=== PATIENT | male | born 2005 | race African-American/Black ===

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

== ENCOUNTER 2023-11-22 06:52 | Emergency (ER) | payer SELFPAY ==
[2023-11-22 06:53] VITALS: PULSE 61; RESP 16; TEMP 36.8; O2SAT 100
--- NOTE | 2023-11-22 07:19 | ED.NAVMDI ---
HPI - Nausea/Vomiting/Diarrhea General Chief complaint: Nausea/Vomiting/Diarrhea Stated complaint: vomiting Time Seen by Provider: 11/22/23 07:09 Source: patient Mode of arrival: ambulatory Limitations: no limitations History of Present Illness HPI Narrative: 18 years old male came to the hospital with vomiting every day in the morning maximum wants lately noticed streaks of blood in his vomitus. Patient reported been drinking alcohol in the last few days because of the holiday. Also complaining of burning sensation in the epigastric area the last few days. He denies any fever, chills, diarrhea, headache. Related Data Allergies Allergy/AdvReac Type Severity Reaction Status Date / Time No Known Allergies Allergy Verified 11/22/23 07:21 Review of Systems Review of Systems: All systems reviewed & are unremarkable except as noted in HPI and below PMFSH Past Medical History Medical History Kidney stone on left side Wrist fracture, bilateral Surgical History Surgical History No pertinent past surgical history Social History Social History Smoking status: Never smoker Exam Narrative: General appearance: Well-developed, well-nourished Skin: Normal color Head: Normocephalic, nontraumatic Eyes: Clear conjunctiva ENT: Oropharynx normal, ears normal, nose normal Neck: Supple, nontender Chest and respiratory: Airway patent, no respiratory distress, no accessory muscle use Heart: Regular rate/rhythm Abdomen: Soft, nontender, no organomegaly, quiet bowel sounds Vascular: Normal peripheral pulses, normal capillary refill. Musculoskeletal: Normal range of motion, nontender back Neurologic: Alert and oriented ?3, SPEECH LANGUAGE THERAPIST is normal as tested, no gross motor deficit Course Vital Signs Vital signs: Vital Signs Temperature 36.8 C 11/22/23 06:53 Pulse Rate 61 11/22/23 06:53 Respiratory Rate 16 11/22/23 06:53 Pulse Oximetry 100 11/22/23 06:53 Oxygen Delivery Room Air 11/22/23 06:53 Temperature 36.8 C 11/22/23 06:53 Pulse Rate 95 11/22/23 07:26 Respiratory Rate 16 11/22/23 06:53 Blood Pressure 127/80 11/22/23 07:26 Pulse Oximetry 100 11/22/23 06:53 Oxygen Delivery Room Air 11/22/23 06:53 MDM - Nausea/Vomiting/Diarrhea MDM Narrative Medical decision making narrative: Patient presents with epigastric burning sensation and vomiting, GERD, alcohol gastritis is my concern. Blood workup today showed no significant abnormalities Patient received 2 L of normal saline IV and 4 mg of Zofran IV prior to discharge. Discharge on Protonix. Differential Diagnosis Differential diagnosis: Likely other ( As above) Medical Records Attestation: I reviewed the patient's medical records. Lab Data Attestation: I reviewed the patient's lab results. 11/22/23 07:20 11/22/23 07:20 Labs: Lab Results 11/22/23 11/22/23 Range/Units 07:20 07:51 WBC 14.1 H (4.5-10.0) K/mm3 RBC 5.16 (4.6-6.20) M/mm3 Hgb 16.4 (14.0-18.0) g/dL Hct 49.2 (42.0-52.0) % MCV 95.3 (80-100) fl MCH 31.8 (26-34) pg MCHC 33.3 (32-36) g/dl RDW 11.9 (11.5-14.5) % Plt Count 271 (150-375) k/mm3 MPV 9.5 (7.4-10.4) fl Immature Gran % (Auto) 0.4 (0-0.5) % Neut % (Auto) 82.9 H (45.5-73.1) % Lymph % (Auto) 12.7 L (18.3-44.2) % [place] % (Auto) 3.7 (2.6-8.5) % Eos % (Auto) 0.1 (0-4.4) % Baso % (Auto) 0.2 (0.2-1.2) % Lymph # (Auto) 1.78 (0.9-3.2) K/mm3 [place] # (Auto) 0.5 (0.1-0.6)
[2023-11-22 07:23] VITALS: BP 127/76; PULSE 71
[2023-11-22 07:24] VITALS: BP 131/91; PULSE 63
[2023-11-22 07:25] LABS: Basophils Percent Auto 0.2 % (0.2-1.2); Eosinophils Percent Auto 0.1 % (0-4.4); Hematocrit 49.2 % (42.0-52.0); Hemoglobin 16.4 g/dL (14.0-18.0); Immature Granulocyte Absolute 0.05 K/mm3 (0.00-0.031); Immature Granulocyte Percent A 0.4 % (0-0.5); Lymphocytes Absolute Auto 1.78 K/mm3 (0.9-3.2); Lymphocytes Percent Auto 12.7 % (18.3-44.2); Mean Corpuscular HGB Conc 33.3 g/dl (32-36); Mean Corpuscular Hemoglobin 31.8 pg (26-34); Mean Corpuscular Volume 95.3 fl (80-100); Mean Platelet Volume 9.5 fl (7.4-10.4); Monocytes Absolute Auto 0.5 K/mm3 (0.1-0.6); Monocytes Percent Auto 3.7 % (2.6-8.5); Neutrophils Absolute Auto 11.7 K/mm3 (1.3-6.7); Neutrophils Percent Auto 82.9 % (45.5-73.1); Platelet Count Result 271 k/mm3 (150-375); Red Blood Count 5.16 M/mm3 (4.6-6.20); Red Cell Distribution Width 11.9 % (11.5-14.5); White Blood Count 14.1 K/mm3 (4.5-10.0)
[2023-11-22 07:26] VITALS: BP 127/80; PULSE 95
[2023-11-22] MEDS: ONDANSETRON INJ 4 MG/2 ML VIAL IV PUSH (07:28)
[2023-11-22] MEDS: SODIUM CHLORIDE 0.9% IV 1,000 ML 999 ML IV CONT ×2 (07:29)
[2023-11-22 07:35] LABS: Alanine Aminotransferase 30 U/L (6-50); Albumin Level 5.1 g/dL (3.5-5.1); Alkaline Phosphatase 67 U/L (38-126); Anion Gap 12 mmol/L (8-16); Aspartate Amino Transferase 39 U/L (17-59); Bilirubin,Total 0.7 mg/dL (0.2-1.3); Blood Urea Nitrogen 12 mg/dL (9-20); Calcium 10.3 mg/dL (8.4-10.2); Carbon Dioxide 28 mmol/L (22-30); Chloride 104 mmol/L (98-107); Estimated CRCL calculation 128 ml/min; Estimated Glomerular Filt Rate > 60; Glucose 86 mg/dL (65-110); Lipase 64 U/L (23-300); Potassium 3.9 mmol/L (3.4-5.0); Sodium 144 mmol/L (137-145)
[2023-11-22 08:06] LABS: Appearance Urine Clear (Clear); Bacteria Urine None Seen /hpf; Bilirubin Urine Negative (Negative); Blood Urine Negative (Negative); Color Urine Yellow (Yellow); Glucose Urine UA Negative (Negative); Ketones Urine 2+ mg/dL (Negative); Leukocyte Esterase Ur Negative LEU/UL (Negative); Nitrate Urine Negative (Negative); Non Pathogenic Casts 0-2; Protein Urine Trace mg/dL (Negative); Specific Grav Ur 1.024 (1.001-1.035); Squamous Epithelial Cell Urine None seen /hpf (Few); WBC Urine 0-5 /hpf; pH Urine 8.5 (5.0-9.0)
[2023-11-22 08:18] LABS: Amphetamine Screen Urine Negative (Negative); Barbiturate Screen Urine Negative (Negative); Benzodiazepines Screen Urine Negative (Negative); Cannabinoid Screen Urine Positive (Negative); Cocaine Screen Urine Negative (Negative); Methadone Screen Urine Negative (Negative); Opiate Screen Urine Negative (Negative); Phencyclidine Screen Urine Negative (Negative)
[2023-11-22 08:21] LABS: Add Urine Microscopic? YES
[2023-11-22 08:55] VITALS: BP 120/80; PULSE 75; RESP 18; TEMP 36.6; O2SAT 100
== END 2023-11-22 08:56 | disposition home or self-care (01) ==
PROVIDERS: Emergency Provider Emergency Medicine
DX: K21.9 Gastro-esophageal reflux disease without esophagitis (principal); F12.99 Cannabis use, unspecified with unspecified cannabis-induced disorder
CPT/HCPCS: 36415; 80053; 80307; 81001; 83690; 85025; 96361; 96374; 99284; J2405; J7030

== ENCOUNTER 2023-12-23 19:13 | Emergency (ER) | payer OTHER, SELFPAY ==
--- NOTE | ~2023-12-23 | XR_ITS ---
EXAMINATION: XR chest 2V DATE: 12/23/2023 19:43 INDICATION: Midsternal chest pain. TECHNIQUE: Frontal and lateral views of the chest were obtained. COMPARISON: CT abdomen and pelvis 02/25/22 FINDINGS: There is no pneumonia, pleural effusion, or pneumothorax. The heart size is normal. IMPRESSION: 1. No acute cardiopulmonary disease. Reviewed, dictated and finalized at location E. TREER
--- NOTE | ~2023-12-23 | CT_ITS ---
EXAMINATION: CT abdomen pelvis wo con DATE: 12/23/2023 23:38 INDICATION: Epigastric abdominal pain. TECHNIQUE: Computed tomography (CT) of the abdomen and pelvis was performed without intravenous contr ast. Automated exposure control and iterative reconstruction technique were employed. The dose-length product was 335.50 mGy-cm. COMPARISON: CT abdomen and pelvis 02/25/2022 FINDINGS: The visualized portions of the lung bases demonstrate pneumomediastinum. No pleural effusio n. The heart size is normal. No pericardial effusion. The liver, gallbladder, spleen, pancreas, and a drenal glands are normal. There is bilateral medullary nephrocalcinosis. There are 6 stones in right kidney measuring up to 3 mm. There are 5 stones in left kidney measuring up to 4 mm. There are no dil ated loops of bowel. The appendix is normal. There are no pathologically enlarged lymph nodes. There is no free intraperitoneal fluid. There is mild lumbar spondylosis. IMPRESSION: 1. Small volume of pneumomediastinum. 2. Bilateral medullary nephrocalcinosis. Small bilateral nonobstructing kidney stones. Reviewed, dictated and finalized at location E. OPERATOR
--- NOTE | 2023-12-23 19:14 | ECG_ITS ---
Measurements Intervals [place] Rate: 86 P: 80 [place]: 165 QRS: 87 QRSD: 93 T: 27 QT: 354 QTc: 426 Interpretive Statements SINUS RHYTHM MINIMAL Q WAVES- INFERIOR LEADS BORDERLINE ST-T WAVE ABNORMALITY- INFERIOR LEADS BORDERLINE ECG COMPARED TO ECG 07/24/2021 00:54:12 ST ELEVATION RESOLVED Electronically Signed On 12-23-2023 21:15:54 DATE NIGHT CAREGIVER by Nicola Rodriguez D.O.
[2023-12-23 19:33] VITALS: BP 132/92; PULSE 90; RESP 15; TEMP 36.8; O2SAT 97
[2023-12-23 20:02] LABS: Basophils Percent Auto 0.2 % (0.2-1.2); Eosinophils Percent Auto 0.1 % (0-4.4); Hematocrit 49.5 % (42.0-52.0); Hemoglobin 16.9 g/dL (14.0-18.0); Immature Granulocyte Absolute 0.03 K/mm3 (0.00-0.031); Immature Granulocyte Percent A 0.2 % (0-0.5); Lymphocytes Absolute Auto 1.36 K/mm3 (0.9-3.2); Lymphocytes Percent Auto 10.1 % (18.3-44.2); Mean Corpuscular HGB Conc 34.1 g/dl (32-36); Mean Corpuscular Hemoglobin 32.1 pg (26-34); Mean Corpuscular Volume 94.1 fl (80-100); Monocytes Absolute Auto 0.9 K/mm3 (0.1-0.6); Monocytes Percent Auto 6.4 % (2.6-8.5); Neutrophils Absolute Auto 11.2 K/mm3 (1.3-6.7); Platelet Count Result 283 k/mm3 (150-375); Red Blood Count 5.26 M/mm3 (4.6-6.20); Red Cell Distribution Width 11.6 % (11.5-14.5); White Blood Count 13.5 K/mm3 (4.5-10.0)
[2023-12-23 20:06] LABS: Prothrombin Time 13.9 Seconds (11.1-14.7)
[2023-12-23 20:07] LABS: Partial Thromboplastin Time 33.3 SECONDS (22.3-36.8)
[2023-12-23 21:44] LABS: Alanine Aminotransferase 26 U/L (6-50); Albumin Level 5.2 g/dL (3.5-5.1); Alkaline Phosphatase 68 U/L (38-126); Anion Gap 11 mmol/L (8-16); Aspartate Amino Transferase 40 U/L (17-59); Blood Urea Nitrogen 13 mg/dL (9-20); Calcium 10.2 mg/dL (8.4-10.2); Carbon Dioxide 25 mmol/L (22-30); Chloride 104 mmol/L (98-107); Estimated CRCL calculation 128 ml/min; Estimated Glomerular Filt Rate > 60; Glucose 99 mg/dL (65-110); Lipase 45 U/L (23-300); Potassium 4.3 mmol/L (3.4-5.0); Sodium 140 mmol/L (137-145)
[2023-12-23 21:55] LABS: Troponin I < 0.012 ng/mL (0.000-0.034)
[2023-12-23 23:08] VITALS: PULSE 81
[2023-12-23 23:09] VITALS: O2SAT 100
--- NOTE | 2023-12-23 23:09 | ECG_ITS ---
Measurements Intervals [place] Rate: 66 P: 62 PA: 176 QRS: 66 QRSD: 100 T: 30 QT: 396 QTc: 417 Interpretive Statements SINUS RHYTHM WITH SINUS ARRHYTHMIA NONSPECIFIC ST ELEVATION IN ANTERIOR LEADS BORDERLINE ECG COMPARED TO ECG 12/23/2023 19:17:52 SINUS ARRHYTHMIA NOW PRESENT Electronically Signed On 12-24-2023 6:38:34 RICE FARMER by Nicola Rodriguez D.O.
[2023-12-23 23:10] VITALS: BP 142/92; PULSE 82; RESP 19; TEMP 36.6; O2SAT 100
[2023-12-23 23:24] LABS: Troponin I < 0.012 ng/mL (0.000-0.034)
--- NOTE | 2023-12-23 23:28 | ED.GENADULT ---
[facility] - General Adult General Chief complaint: Chest Pain Stated complaint: midsternal pain, Time Seen by Provider: 12/23/23 23:06 Source: patient Mode of arrival: ambulatory Limitations: no limitations History of Present Illness HPI narrative: This is a 18-year-old male who presents to the ED with chief complaint of midsternal chest pain intermittently for the past week. Reports that today started to have some nausea and multiple episodes of emesis. He also reports also ill episodes of watery diarrhea. He had coags who reports some pain throughout the mid chest and upper mid abdomen area. He has been taking some anti acid medications at home with some relief. He also took Dramamine today with relief of nausea. Denies fevers, chills, urinary problems, cough, congestion, leg swelling, palpitations. Related Data Allergies Allergy/AdvReac Type Severity Reaction Status Date / Time No Known Allergies Allergy Verified 11/22/23 07:21 Review of Systems Review of Systems: All systems as dictated in [facility] Past Medical History Medical History Kidney stone on left side Wrist fracture, bilateral Surgical History Surgical History No pertinent past surgical history Social History Social History Smoking status: Never smoker Exam Narrative: GENERAL: Well-appearing, well-nourished, and in no acute distress. HEAD: Normocephalic, atraumatic. EYES: PERRLA and EOMI. ENT: Nares clear, no rhinorrhea or epistaxis. Mucous membranes moist. Oropharynx without tonsillar hypertrophy exudate or other lesions. NECK: Supple. No adenopathy or masses. CHEST: No respiratory distress. Clear to auscultation. No wheezes rales or rhonchi HEART: Regular rate and rhythm. No murmur heard. Normal peripheral pulses. ABDOMEN: Soft, nontender, nondistended, normal active bowel sounds. MSK: Normal range of motion. No edema. SKIN: Warm, dry, no rash. NEURO: Alert and oriented x3. No focal deficits. PSYCH: Normal mood and affect. Course Vital Signs Vital signs: Vital Signs Temperature 98.3 F 12/23/23 19:33 Pulse Rate 90 01/26/24 19:33 Respiratory Rate 15 12/23/23 19:33 Blood Pressure 132/92 H 12/23/23 19:33 Pulse Oximetry 97 12/23/23 19:33 Oxygen Delivery Room Air 12/23/23 19:33 Temperature 97.8 F 12/23/23 23:10 Pulse Rate 62 12/24/23 01:39 Respiratory Rate 15 12/24/23 01:39 Blood Pressure 128/98 H 12/24/23 01:39 Pulse Oximetry 98 12/24/23 01:39 Oxygen Delivery Room Air 12/23/23 23:09 Medical Decision Making MDM Narrative Medical decision making narrative: this is a 18-year-old male who presents to the ED with chief complaint of 1 week of chest pain and nausea and vomiting today. Vitals are normal. No episodes of vomiting while being observed here. Exam does show epigastric tenderness. ECG shows sinus rhythm with sinus arrhythmia. Serial troponins are normal. White count slightly elevated at 13.5. likely acute phase reactant with the vomiting. Lipase normal. PERC rule negative. Chest x-ray shows no acute cardiopulmonary disease. CT scan:1. Small volume of pneumomediastinum. 2. Bilateral medullary nephrocalcinosis. Small bilateral nonobstructing kidney stones.. He has improved with fluids, antiemetics and antacid medications.. vitals continue to be stable. He is resting comfortably exam. With this finding of pneumomediastinum after vomiting it would be pertinent to have an esophagram performed. Spoke with the hospitalist to recommends transfer to a higher level of care that has CT surgery on board in case things should worsen. I explained all has to the patient and that he would likely need to be transferred for with further imaging and likely observation. He is understanding of this plan and is agreeab
[2023-12-23] MEDS: BELLADONNA ALK/PHENOB ELIX 10 ML, MAG HYDROX/ALUMINUM HYD/SIMETH 30 ML, LIDOCAINE HCL 2... PO (23:50)
[2023-12-23] MEDS: ONDANSETRON INJ 4 MG/2 ML VIAL IV PUSH (23:51)
[2023-12-23] MEDS: KETOROLAC 15 MG/ML VIAL (*BKC) IV PUSH (23:52)
[2023-12-24 00:23] VITALS: BP 121/7; PULSE 55; RESP 15; O2SAT 98
--- NOTE | 2023-12-24 01:05 | ECG_ITS ---
Measurements Intervals [place] Rate: 53 P: 62 NC: 167 QRS: 74 QRSD: 102 T: 32 QT: 439 QTc: 413 Interpretive Statements SINUS BRADYCARDIA ATRIAL PREMATURE COMPLEXES BORDERLINE ECG COMPARED TO ECG 12/23/2023 23:13:30 SINUS BRADYCARDIA NOW PRESENT Electronically Signed On 12-24-2023 6:46:31 SHUTDOWN COORDINATOR by Nicola Rodriguez D.O.
[2023-12-24] MEDS: PANTOPRAZOLE SODIUM IV 40 MG VIAL IV PUSH (01:15)
[2023-12-24 01:39] VITALS: BP 128/98; PULSE 62; RESP 15; O2SAT 98
[2023-12-24 01:43] LABS: Troponin I < 0.012 ng/mL (0.000-0.034)
== END 2023-12-24 02:19 | disposition short-term general hospital (02) ==
PROVIDERS: Emergency Medicine; Emergency Provider Physician Assistant
DX: R07.2 Precordial pain (principal); J98.2 Interstitial emphysema; Z87.442 Personal history of urinary calculi; R94.31 Abnormal electrocardiogram [ECG] [EKG]; E83.59 Other disorders of calcium metabolism; N29 Other disorders of kidney and ureter in diseases classified elsewhere; I49.1 Atrial premature depolarization
CPT/HCPCS: 36415; 71046; 74176; 80053; 83690; 84484; 85025; 85610; 85730; 93005; 96374; 96375; 99285; A9270; C9113; J1885; J2405

== ENCOUNTER 2025-07-26 20:49 | Emergency (ER) | payer OTHER, SELFPAY ==
--- OUTSIDE RECORDS SUMMARY | 2021-04-28 08:00 | XMS_ITS | Continuity of Care Document ---
Author Organization [facility] Address [address] [place] [address] Phone Care Team Providers Care Division Engineer Name Role Phone Ethel Harper MD Unavailable Unavailable Allergies, Adverse Reactions, Alerts Substance Reaction Status Criticality No Known Allergies Active No Inform ation Procedures Procedure Date RADEX WRST COMPL MINIMUM 3 VIEWS 2020 RADEX WRST COMPL MINIMUM 3 VIEWS 2020 POSTOP FOLLOW-UP VISIT RADEX WRST COMPL MINIMUM 3 VIEWS 2020 OFFICE/OUTPATIENT VISIT NEW OFFICE/OUTPATIENT VISIT NEW Advance Directives Directive Yes / No Effective Date File Name No Information Encounters Encounter Description Practice Location Reason(s) For Visit Diagnoses Date Provider Providers Copied on Encounter [facility], [address], [place], [address], [place] tel:[phone] [facility] [place] Other fractures of lower end of right radius, subsequent encounter for closed fracture with routine healingClosed displaced fracture of scaphoid of left wrist with routine healing, unspecified portion of scaphoid, subsequent encounter Meredith Davenport. [address], [place], [place], [id number] . tel: [phone] OFFICE/OUTPA TIENT VISIT NEW [facility], [address], [place], [address], [place] tel:[phone] [facility] [place] Left wrist painClosed nondisplaced fracture of scaphoid of left wrist, unspecified portion of scaphoid, initial encounterOther closed fracture of distal end of right radius, initial encounter 1 Meredith Davenport. [address], [place], [place], [id number] . tel: [phone] Referring Provider: Hossein Slade, [address], [place], [address] . tel:[phone] OFFICE/OUTPA TIENT VISIT [facility], [address] [place] [address] [address], [place], [address], [place] tel:[phone] [facility] Contusion of rib on right side, initial encounter 9 Demarco Mendes. [address] [place] [address] [address], [place], [address]. tel: [phone] [facility], [address] [place] [address] [address], [place], [address], [place] tel:[phone] [facility] Torus fracture of distal end of right ulna with routine healing, subsequent encounterGreens tick fracture of distal radius, right, closed, with routine healing, subsequent encounter 5 Vanessa Higginbotham. [address] [facility], [address], [place], [place], [id number] . tel: [phone] [facility], [address] [place] [address] [address], [place], [address], [place] tel:[phone] [facility] Follow Up of R wrist (chief complaint) Closed fracture of lower end of radius with ulna, right, with routine healing, subsequent encounter ^Unsp fx lower end of r ulna, subs for clos fx w routn healAcromioclav icular sprain, right, subsequent encounter 5 Vanessa Higginbotham. [address] [facility], [address], [place], [place], [address] . tel: [phone] [facility], [address] [place] [address] [address], [place], [address], [place] tel:[phone] [facility] Distal radius fracture 5- 5 Mendez Anahy. [address] [facility] [address], [address], [place], [place], [address] . tel: [phone] [facility], [address], [place], [address], tel:[phone] [facility] Closed fracture of lower end of radius with ulna 0-201 4 Mendez Anahy. [address] [facility] [address], [address], [place], [place], [address] . tel: [phone] [facility], [address], [place], [address], [place] [phone] [facility] Closed fracture of lower end of radius with ulna 7- 4 Mendez Anahy. [address] [facility] [address], [address], [place], [place], [address] . tel: [phone] [facility], [address], [place], [address], [place] [phone] [facility] Closed fracture of lower end of radius with ulna 3- 4 Barajas Kathy. [address] [facility] [address], [place], [place], [id number] . tel: [phone] Family History Family Member Type Diagnosis Age At Onset Mother Problem (finding) Alive and well Payers Payer name Insurance type Covered libertarian ID Brayan red(s) Blue Access PPO E2 OT [id number] Social History Type Description Quantity Date Captured Comments Alcohol Use Details Unknown Caffeine Use Details Unknown Tobacco Use Status Current non-smoker Smoking Status Never smoker Sex Male Chief Complaint And Reason For Visit No Information Reason For Referral Reason For Referral No Information Plan Of Treatment Date Type Action Status Referral Ordered: RADEX WRST COMPL MINIMUM 3 VIEWS RT ordered Referral Ordered: RADEX WRST COMPL MINIMUM 3 VIEWS LT ordered Referral Ordered: MRI ANY JT UXTR C-MATRL LT wrist Appointment date/timeframe: 04/02/2021 ordered Referral Ordered: RADEX RIBS UNI 2 VIEWS RT ordered Referral Ordered: RADEX WRST 2 VIEWS RT ordered Referral Ordered: RADEX WRST 2 VIEWS LT ordered History Of Present Illness Encounter Date Complaint History Of Prese nt Illness Follow Up of R wrist Functional Status Date Functional Assessmen t No Information Instructions Date Instruction Additional Infor mation No Information Assessments Type Assessment Date assessment Other fractures of l ower end of right radius, subsequent encounter for closed fracture with routine healing assessment Closed displaced fra cture of scaphoid of left wrist with routine healing, unspecified portion of scaphoid, subsequent encounter Patient Care Teams Name Effective Dates (start - stop) Status Members No Information
--- NOTE | ~2025-07-26 | XR_ITS ---
EXAMINATION: XR chest 2V DATE: 07/26/2025 21:13 INDICATION: Chest pain TECHNIQUE: PA and lateral views of the chest were obtained. COMPARISON: Chest radiograph dated 12/23/2023 FINDINGS: The lungs remain clear with no focal airspace opacities, pulmonary edema, pleural effusion or pneumothorax. The cardiomediastinal silhouette is normal. Visualized bones and soft tissues are unremarkable. IMPRESSION: 1. Normal chest radiograph. Reviewed, dictated and finalized at location A. IMPRESSION: 1. Normal chest radiograph.
--- OUTSIDE RECORDS SUMMARY | 2025-07-26 20:52 | XMS_ITS | Clinical Summary ---
Author Organization [facility] Address [address] [place] [address] Care Team Providers Care Credit Operations Processor Name Role Phone Unavailable Primary Care Provider Unavailabl e Source Comments [facility],non-owned Affiliates and Associated Physician Practices is amultiple site organization consisting of ambulatory clinics and hospital sitesin [place], [place] and [place]. This disclosure is being madepursuant to the Care Everywhere program and may not contain all information available regarding this patient. Last updated 18.[facility] Allergies No known active allergies Medications * Be aware that medications may not be up to date on this document. Alwaysverify current medications with the patient. Cetirizine HCl (ZYRTEC PO) Active ibuprofen (MOTRIN) 600 MG tablet Take 1 tablet by mouth every 6 hours as needed for Pain 30 tablet 8 Active Additional Information Patient not taking.Reported on 09/08/2019 tamsulosin (FLOMAX) 0.4 MG capsule Take 1 (one) capsule by mouth once daily after breakfast At the same time every day after a meal. 30 capsule 2 Active ketorolac (TORADOL) 10 MG tablet Take 1 (one) tablet by mouth every 6 hours as needed for Pain 15 tablet 2 Active Social History Tobacco Use Types Packs/Day Years Used Date Smoking Tobacco: Never Smokeless Tobacco: Never Tobacco Cessation:Counseling Given: Not Answered Alcohol Use Standard Drinks/Week Comments Not Currently 0 (1 standard drink = 0.6 oz pur e alcohol) occasionally AUDIT-C Answer Date Recorded Q1: How often do you have a drink containing alc ohol? Monthly or less 12/24/2023 Q2: How many drinks containi ng alcohol do you have on a typical day when you are drinking? 1 or 2 12/24/2023 Q3: How often do you have si x or more drinks on one occasion? Never 12/24/2023 PHQ-2 Answer Date Recorded PHQ2 TOTAL SCORE 1 12/02/2021 Sex and Gender Information Value Date Recorded Sex Assigned at Male 12/02/2021 2:44 PM BIG DATA DEVELOPER Legal Sex Male 11:33 AM CDT Gender Identity Male 12/02/2021 2:44 PM BIG DATA DEVELOPER Sexual Orientation Straight 12/02/2021 2: 44 PM BIG DATA DEVELOPER Last Filed Vital Signs Vital Sign Reading Time Taken Comments Blood Pressure 134/87 01/17/2024 10:00 PM BIG DATA DEVELOPER Pulse 84 01/17/2024 10:00 PM BIG DATA DEVELOPER Temperature 37.1 C (98.8 F) 01/17/2024 10:00 PM BIG DATA DEVELOPER Respiratory Rate 18 01/17/2024 10:00 PM BIG DATA DEVELOPER Oxygen Saturation 99% 01/17/2024 10:00 PM BIG DATA DEVELOPER Inhaled Oxygen Concentration - - Weight 74.4 kg (164 lb) 01/17/2024 5:49 PM BIG DATA DEVELOPER Height 175.3 cm (5' 9) 01/17/2024 5:49 PM BIG DATA DEVELOPER Body Mass Index 24.22 01/17/2024 5:49 PM BIG DATA DEVELOPER Plan of Treatment Health Maintenance Due Date Last Done Comments HIV SCREENING 2018 HPV VACCINE (1 - Male 3-dose series) 2018 MENINGOCOCCAL (Group B) VACCINE SHARED DECISION-MAKING (1 of 2 - Standard) 2019 HEPATITIS C SCREENING 05/01/2021 DTAP/TDAP/TD VACCINES (1 - Tdap) 2022 HEPATITIS B VACCINE (1 of 3 - 19+ 3-dose series) 2022 COVID-19 VACCINE (3 - 2023-2 5 season) 2024 04/11/2021, 03/21/2021 DEPRESSION SCREENING 11/28/2024 04/19/2022 INFLUENZA VACCINE (#1) 2025 ZOSTER VACCINE (1 of 2) 2053 HIB VACCINE Aged Out No longer eligi ble based on patient's age to complete this topic MENINGOCOCCAL GROUPS A/C/Y/W VACCINE Aged Out No longer eligible b ased on patient's age to complete this topic PNEUMOCOCCAL VACCINE Aged Out No long er eligible based on patient's age to complete this topic Insurance [facility] [facility] Address: [facility] [id number] [place] [address]
--- OUTSIDE RECORDS SUMMARY | 2025-07-26 20:52 | XMS_ITS | Encounter Summary ---
Author Organization [employer] Address [address] [place] [address] Care Team Providers Care Automotive Designer Name Role Phone Quinn Tarango MD Primary Care Provider Yu vailable Encounter Details Date Type Department Care Team (Latest Contact Info) Description 11/11/2005 Outpatient Historical [facility] Kannan Mon MD [address] [facility] [address] [place] [id number] LOCAL SUPRFICIAL SWELLNG (Primary Dx) Social History Tobacco Use Types Packs/Day Years Used Date Smoking Tobacco: Never Assessed Sex and Gender Information Value Date Recorded Sex Assigned at Not on file Legal Sex Male 3:21 AM ORDER MAKE UP CLERK Gender Identity Not on file Sexual Orientation Not on file documented as of this encounter Plan of Treatment Not on file documented as of this encounter Visit Diagnoses Diagnosis Localized superficial swelling, mass, or lump- Primary documented in this encounter Care Teams Automotive Designer Relationship Specialty Start Date End Date Quinn Tarango MD NO ADDRESS ON FILE PCP - General 06/15/04 documented as of this encounter
--- OUTSIDE RECORDS SUMMARY | 2025-07-26 20:52 | XMS_ITS | Clinical Summary ---
Author Organization [facility] Address [address] [place] [address] Phone Care Team Providers Care Air Twister Winder Name Role Phone Quinn Tarango MD Primary Care Provider Yu vailable Medications No known medications Active Problems No known active problems Family History Medical History Relation Name Comments Healthy Father Healthy Mother Relation Name Status Comments Father Alive Mother Alive Social History Tobacco Use Types Packs/Day Years Used Date Smoking Tobacco: Never Sex and Gender Information Value Date Recorded Sex Assigned at Not on file Legal Sex Male 3:21 AM SUPPORT REPRESENTATIVE Gender Identity Not on file Sexual Orientation Not on file Last Filed Vital Signs Vital Sign Reading Time Taken Comments Blood Pressure 118/84 04/01/2021 6:32 PM CDT Pulse 80 04/01/2021 6:32 PM CDT Temperature 37.6 C (99.6 F) 04/01/2021 6:32 PM CDT Respiratory Rate 18 04/01/2021 6:32 PM CDT Oxygen Saturation 98% 04/01/2021 6:32 PM CDT Inhaled Oxygen Concentration - - Weight 69.4 kg (153 lb) 04/01/2021 6:32 PM CDT Height 175.3 cm (5' 9) 04/01/2021 6:32 PM CDT Body Mass Index 22.59 04/01/2021 6:32 PM CDT Plan of Treatment Health Maintenance Due Date Last Done Comments HPV VACCINES (1 - Male 3-dose series) 2018 DTAP/TDAP/TD VACCINES (1 - Tdap) 2022 HEPATITIS B VACCINES (1 of 3 - 19+ 3-dose series) 07/2022 COVID-19 Vaccine (2 2023- season) 2024 INFLUENZA VACCINE (#1) 2025 Insurance [employer] BLUE ACCESS/TRUE BLUE PPO [employer] ACCESS/TRUE BLUE [place] [address] [id number] [place] OF [place] [address] [id number] Care Teams Air Twister Winder Relationship Specialty Start Date End Date Quinn Tarango MD NO ADDRESS ON FILE PCP - General 06/15/04
--- OUTSIDE RECORDS SUMMARY | 2025-07-26 20:52 | XMS_ITS | Encounter Summary ---
Author Organization [facility] Address [address] [place] [address] Care Team Providers Care International Sales Representative Name Role Phone Quinn Tarango MD Primary Care Provider Yu vailable Encounter Details Date Type Department Care Team (Late st Contact Info) Description 11/24/2005 Outpatient Historical [facility] Childrens Surgery [address] [place] [address] Kannan Mon Social History Tobacco Use Types Packs/Day Years Used Date Smoking Tobacco: Never Assessed Sex and Gender Information Value Date Recorded Sex Assigned at Not on file Legal Sex Male 3:21 AM TIER OVER Gender Identity Not on file Sexual Orientation Not on file documented as of this encounter Plan of Treatment Not on file documented as of this encounter Visit Diagnoses Not on filedocumented in this encounter Care Teams International Sales Representative Relationship Specialty Start Date End Date Quinn Tarango MD NO ADDRESS ON FILE PCP - General 06/15/04 documented as of this encounter
--- OUTSIDE RECORDS SUMMARY | 2025-07-26 20:52 | XMS_ITS | Clinical Summary ---
Author Organization [facility] Address [address] [place] [address] Care Team Providers Care Fermenting Cellars Receiver Name Role Phone Fawad Montejo MD Unavailable [phone] Chay Ball MD Primary Care Provider Allergies No known active allergies Medications cholecalciferol (VITAMIN D-3) 5,000 unit tabletIndication s:Vitamin D Deficiency Take 1 tablet (5,000 Units total) by mouth daily 90 tablet 3 5 Active Additional Information Patient not taking.Reported on 04/09/2025 omeprazole (PriLOSEC) 40 mg capsuleIndicatio ns:Gastroesophag eal reflux disease, unspecified whether esophagitis present Take 1 capsule (40 mg total) by mouth daily 90 capsule 5 04/09/20 26 Active sucralfate (CARAFATE) suspension 1 gram/10 mLIndications:Ga stroesophageal reflux disease, unspecified whether esophagitis present Take 5 mL (0.5 g total) by mouth every 6 (six) hours as needed (Gerd) 414 mL 5 Active Active Problems Problem Noted Date Diagnosed Date Vitamin D deficiency 12/28/2024 Assessment & Plan (12/28/2024 8:48 PM AUTO PARTS PROFESSIONAL): - new diagnosis - noted with level 14 on 11/2024 - start Vitamin D3 5000 International units daily, script sent Lab Results Component Value Date 25HYDROVITD 14 (L) 12/27/2024 Pure hypercholesterolemia 12/28/2024 Assessment & Plan (12/28/2024 8:50 PM AUTO PARTS PROFESSIONAL): - new diagnosis - noted on lab work - encourage lifestyle modification, will continue to monitor Lab Results Component Value Date CHOL 204 (H) 12/27/2024 Lab Results Component Value Date HDL 54 12/27/2024 Lab Results Component Value Date LDLCALC 134 (H) 12/27/2024 Lab Results Component Value Date TRIG 91 12/27/2024 Preventative health care 12/27/2024 Assessment & Plan (12/28/2024 8:50 PM AUTO PARTS PROFESSIONAL): - New or chronic worsening conditions: Vitamin D deficiency, pure hypercholesterolemia - Mental health: no significant psychiatric/mental health conditions affecting her day to day functioning - Dental health: past due, Recommend regular dental care and cleaning. Discussed importance of regular tooth brushing, flossing, and dental visits. - Nutrition: Recommend moderation in sodium/caffeine intake, saturated fat and cholesterol, caloric balance, sufficient intake of fresh fruits, vegetables - Exercise: Recommend to exercise at least 30 minutes moderate to vigorous exercise most days of the week. (minimum 150 minutes weekly) - Immunizations: Age and sex appropriate immunizations reviewed and offered - Vision - wears contacts - no concern for STD, safe sex practices recommended No results found for: PSA Gastroesophageal reflux disease 12/27/2024 Assessment & Plan (04/09/2025 3:14 PM CDT): Gastroesophageal reflux disease (GERD) Chronic GERD with worsening symptoms over the past two weeks, including severe heartburn, chest discomfort, nausea, vomiting, diarrhea, and hematochezia. Symptoms are exacerbated by certain foods and drinks and improve when lying down. Previous use of Tums and Germamate provided limited relief. No prior prescription medications for GERD. Recent blood work showed low vitamin D but otherwise normal results. - Prescribe omeprazole daily, preferably in the evening before dinner, for at least 30 days. - Provide a 90-day prescription for omeprazole to ensure availability if symptoms persist. - Consider short-term use of a powder solution to coat the stomach lining if symptoms are severe, but emphasize the inconvenience of this option. - Advise against using other liquid medications like Germamate once omeprazole is started. - Schedule follow-up in six weeks to assess symptom improvement and medication efficacy. Assessment & Plan (12/27/2024 3:24 PM AUTO PARTS PROFESSIONAL): - managed via lifestyle - encouraged healthy diet and exercise - Discussed increased risk of cdif and vit B12 deficiency with fdc use of PPI. Recommend the following changes: - Avoid trigger foods (such as spicy foods, fried foods, onions, peppermints, chocolate, high acid foods and juices, caffeinated beverages, carbonated beverages, and tomato based products). - Avoid alcohol take. - Avoid routine use of NSAIDs. - Avoid lying down for 2-3 hours after eating. - Weight loss encouraged. - Eat smaller meals. - Avoid tobacco use. - Sleep on left side. - may sleep with bed propped. - Avoid wearing tight clothing that puts pressure on the stomach. History of right inguinal hernia repair 02/14/20 Overview (02/13/2021): Added automatically from request for surgery [id number] Immunizations Immunization Administration Dates Next Due Hep B, Adolescent or Pediatric 02/08/2004,2002 Hib (PRP-T) 01/11/2004,2003 IPV 04/17/2004 Influenza, Unspecified 04/09/2025(Deferr ed: Patient Refused),12/27/2024(Deferred: Patient Refused),11/28/2023(Deferred: Patient Refused),11/28/2023(Deferred: Patient Refused) Pfizer SARS-CoV-2 Monovalent Vaccination (12+ Yrs) PURPLE 04/11/2021,03/21/2021 Varicella 01/05/2005 Surgical History Surgery Date Site/Laterality Comments KNEE MASS EXCISION Right LAPAROSCOPIC INGUINAL HERNIA REPAIR Right Medical History Medical History Date Comments Right inguinal hernia Family History Medical History Relation Name Comments No Known Problems Brother No Known Problems Father No Known Problems Mother No Known Problems Sister Relation Name Status Comments Brother Father Mother Sister Social History Tobacco Use Types Packs/Day Years Used Date Smoking Tobacco: Never Smokeless Tobacco: Never PHQ-2 Answer Date Recorded PHQ-2 Total Score (If total score is 3 or more points, staff should administer the PHQ-9) 0 04/09/2025 Personal Safety Answer Date Recorded Have you ever been in or are you currently in a harmful physical or emotional relationship or is someone making you feel afraid or unsafe? Denies 04/24/2024 Sex and Gender Information Value Date Recorded Sex Assigned at Not on file Legal Sex Male 3:45 PM AUTO PARTS PROFESSIONAL Gender Identity Not on file Sexual Orientation Not on file Obstetrics History Last Filed Vital Signs Vital Sign Reading Time Taken Comments Blood Pressure 124/84 04/09/2025 11:22 AM CDT Pulse 69 04/09/2025 11:22 AM CDT Temperature 36.7 C (98.1 F) 04/09/2025 11:22 AM CDT Respiratory Rate 16 09/17/2024 9:11 AM CDT Oxygen Saturation 98% 04/09/2025 11: 22 AM CDT Inhaled Oxygen Concentration - - Weight 78.4 kg (172 lb 12.8 oz) 025 11:22 AM CDT Height 177.8 cm (5' 10) 04/09/2025 11: 22 AM CDT Body Mass Index 24.79 04/09/2025 11:22 AM CDT Plan of Treatment Health Maintenance Due Date Last Done Comments Varicella Vaccines (2 of 2 - 2-dose childhood series) 2007 01/05/2005 DTaP/Tdap/Td Vaccine (1 - Tdap) 2014 HPV Vaccines (1 - Male 3-dose series) 2018 Meningococcal B Vaccine (1 o f 2 - Standard) 2019 Pneumococcal vaccine <65 (1 of 2 - PCV) 2022 Covid-19 Vaccine (3 - season) 2024, 03/21/2021 Influenza Vaccine (#1) 2025 Regular Well Visit/Exam 18-64 12/27/2025 12/27/2024 Depression Screening 04/09/2026 04/09/2025, 12/27/19 25 Hepatitis B Screening Completed 02/08/2004, 003 Hepatitis C Screening Completed 12/27/2024 Procedures Procedure Name Priority Date/Time Associated Diagnosis Comments HEPATITIS C ANTIBODY Routine 12/27/2024 3:26 PM AUTO PARTS PROFESSIONAL Encounter for hepatitis C screening test for low risk patient from Last 3 Months or Most Recently Relevant to Health Maintenance Results * Hepatitis C antibody Blood (12/27/2024 3:26 PM AUTO PARTS PROFESSIONAL) Hep C Ab Nonreactive Nonreactive Comment: Interpretive Data Nonreactive: Antibodies to HCV not detected. Does NOT exclude the possibility of recent exposure to HCV. Equivocal: Equivocal for HCV antibodies. Supplemental molecular testing will be automatically performed to determine infection status in accordance with current CDC screening recommendations. Reactive: Positive for HCV antibodies. This may represent current or past HCV infection. Supplemental molecular testing will be automatically performed to determine current infection status in accordance with current CDC screening recommendations. Interpretive data was last revised on 2020. Blood 12/27/2024 3:26 PM AUTO PARTS PROFESSIONAL 12/27/2024 9:04 PM AUTO PARTS PROFESSIONAL us Chay Ball MD LAB MICROBIOLOGY - GENE RAL ORDERABLES Final Result [id number] Department [place] [address] from Last 3 Months or Most Recently Relevant to Health Maintenance Insurance [employer] PPO [facility] [employer]US [employer] [place] P[employer] [facility] [employer] PLUS [employer] OOS Found[employer] OOS Care Teams Fermenting Cellars Receiver Relationship Specialty Start Date End Date Chay Ball MD [address] [address] PCP - General Family Medicine 05/07/25 Fawad Montejo MD Referring Physician Pediatric Surgery 02/19/21
--- OUTSIDE RECORDS SUMMARY | 2025-07-26 20:52 | XMS_ITS | Encounter Summary ---
Author Organization [facility] Address 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
--- OUTSIDE RECORDS SUMMARY | 2025-07-26 20:52 | XMS_ITS | Encounter Summary ---
Author Organization [facility] Address 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
--- NOTE | 2025-07-26 20:54 | ECG_ITS ---
Test Date: 2025-07-26 21:41:26 Measurements Intervals [place] Rate: 67 P: 73 [place]: 178 QRS: 83 QRSD: 90 T: 44 QT: 381 QTc: 402 Interpretive Statements SINUS RHYTHM INCOMPLETE RIGHT BUNDLE BRANCH BLOCK BORDERLINE ECG No previous ECG available for comparison Electronically Signed On 07-27-2025 08:10:03 CDT by Nicola Rodriguez D.O.
--- NOTE | 2025-07-26 21:03 | PC.NURSE ---
Pt immediately requested to use the restroom d/t frequent loose stools. Delay in obtaining troponin, CXR, and triage.
--- NOTE | 2025-07-26 21:09 | PC.NURSE ---
attempted to call pt for triage. pt still in restroom per family
[2025-07-26 21:16] VITALS: BP 135/86; PULSE 78; RESP 16; TEMP 36.8; O2SAT 100
[2025-07-26 21:53] LABS: Hematocrit 46.7 % (42.0-52.0); Hemoglobin 16.4 g/dL (14.0-18.0); Immature Granulocyte Percent A 0.5 % (0-0.5); Lymphocytes Absolute Auto 2.43 K/mm3 (0.9-3.2); Mean Corpuscular HGB Conc 35.1 g/dl (32-36); Mean Corpuscular Hemoglobin 31.7 pg (26-34); Mean Corpuscular Volume 90.3 fl (80-100); Nucleated Red Blood Cells Absolute Auto 0.000 K/mm3 (0.0-0.012); Nucleated Red Blood Cells Perc 0.0 % (0.0-0.2); Platelet Count Result 314 k/mm3 (150-375); Red Blood Count 5.17 M/mm3 (4.6-6.20); White Blood Count 14.9 K/mm3 (4.5-10.0)
[2025-07-26 22:02] LABS: Alanine Aminotransferase 36 U/L (6-50); Albumin Level 4.9 g/dL (3.5-5.1); Alkaline Phosphatase 52 U/L (38-126); Anion Gap 9 mmol/L (4-12); Aspartate Amino Transferase 38 U/L (17-59); Bilirubin,Total 0.7 mg/dL (0.2-1.3); Blood Urea Nitrogen 12 mg/dL (9-20); Calcium 9.9 mg/dL (8.4-10.2); Carbon Dioxide 25 mmol/L (22-30); Chloride 103 mmol/L (98-107); Estimated CRCL calculation 125 ml/min; Estimated Glomerular Filt Rate > 60; Glucose 95 mg/dL (65-110); Lipase 39 U/L (23-300); Potassium 4.2 mmol/L (3.4-5.0); Sodium 137 mmol/L (137-145); Total Protein 9.1 g/dL (6.3-8.2)
[2025-07-26 22:05] LABS: INR 1.0; Prothrombin Time 13.6 Seconds (11.1-14.7)
[2025-07-26 22:06] LABS: Partial Thromboplastin Time 31.6 Seconds (22.3-36.8)
[2025-07-26 22:14] LABS: Troponin I < 0.012 ng/mL (0.000-0.034)
[2025-07-27 00:46] VITALS: O2SAT 100
[2025-07-27 00:47] VITALS: BP 144/70; PULSE 79; PULSE 82; RESP 18; O2SAT 100
--- NOTE | 2025-07-27 01:05 | ECG_ITS ---
Test Date: 2025-07-27 01:07:11 Measurements Intervals [place] Rate: 73 P: 74 VT: 180 QRS: 85 QRSD: 93 T: 56 QT: 381 QTc: 421 Interpretive Statements SINUS RHYTHM WITH MARKED SINUS ARRHYTHMIA NORMAL ECG Compared to ECG 07/26/2025 21:41:26 Incomplete right bundle-branch block no longer present Electronically Signed On 07-27-2025 08:11:51 CDT by Nicola Rodriguez D.O.
[2025-07-27] MEDS: MAG HYDROX/AL HYDROX/SIMETH 30 ML UDC PO (01:39)
[2025-07-27] MEDS: FAMOTIDINE 20 MG/2 ML VIAL IV PUSH (01:40)
[2025-07-27 01:48] LABS: Troponin I < 0.012 ng/mL (0.000-0.034)
[2025-07-27 01:49] VITALS: BP 137/82; PULSE 79; RESP 18; O2SAT 99
[2025-07-27] MEDS: ONDANSETRON INJ 4 MG/2 ML VIAL IV PUSH (02:44)
--- NOTE | 2025-07-27 02:54 | ED_ITS ---
HPI - General Adult General Chief complaint: Chest Pain Stated complaint: Chest pain Time Seen by Provider: 07/27/25 00:48 History of Present Illness HPI narrative: This is a 20-year-old male presenting for nausea vomiting and diarrhea. Patient started having nausea vomiting diarrhea earlier today. It is associated with a sharp pain in his chest that is related to the retching. Patient has had this happen multiple times in the past. He has been on a antacid in the past but has stopped taking it. Patient denies fevers chills shortness of breath. He does have some sharp chest pain as well as some epigastric discomfort. Patient's also notes that he spends 45 minutes on the toilet every day 4-5 times. He says while he is doing this he is having diarrhea and passing a lot of gas. May had been working with primary care physician with these issues although they have stopped seeing them. They have not seen a GI. Patient has a history of pneumomediastinum after retching. He was transferred to [facility] with that time and had an esophagram that was negative. He was then discharged Related Data Allergies Allergy/AdvReac Type Severity Reaction Status Date / Time No Known Allergies Allergy Verified 11/22/23 07:21 ON LICENSE OF [facility] Past Medical History Medical History Kidney stone on left side Wrist fracture, bilateral Surgical History Surgical History No pertinent past surgical history Social History Social History Smoking status: Never smoker Exam 2 Narrative: APPEARANCE: No apparent distress. Head: atraumatic. EYES: EOMI, NOSE: Atraumatic NECK: Trachea midline RESPIRATORY: No increased rate of breathing clear to auscultation CARDIOVASCULAR: RRR, ABDOMINAL: Non-distended MUSCULOSKELETAl: No obvious deformities NEURO: Alert. Moving 4/4 extremities SKIN:: Warm, dry. Normal color PSYCHIATRIC: Normal affect Course Vital Signs Vital signs: Vital Signs Temperature 98.2 F 07/26/25 21:16 Pulse Rate 78 07/26/25 21:16 Respiratory Rate 16 07/26/25 21:16 Blood Pressure 135/86 07/26/25 21:16 Pulse Oximetry 100 07/26/25 21:16 Oxygen Delivery Room Air 07/26/25 21:16 Temperature 98.2 F 07/26/25 21:16 Pulse Rate 79 07/27/25 01:49 Respiratory Rate 18 07/27/25 01:49 Blood Pressure 137/82 07/27/25 01:49 Pulse Oximetry 99 07/27/25 01:49 Oxygen Delivery Room Air 07/27/25 00:46 Medical Decision Making MDM Narrative Medical decision making narrative: -Course: 20-year-old male presenting with 1 day of nausea vomiting diarrhea. Is associated with sharp chest pain that is likely GERD or irritation from his vomiting. He was given Zofran Maalox Pepcid with some improvement. Chest x-ray did not show pneumomediastinum. White count slightly elevated 14.9 but likely reactive. Abdominal exam is benign. Lung exam is clear. On re-evaluation patient is feeling better. Vital signs are stable. He is now able tolerate p.o.. Patient has multiple GI issues including gastritis/GERD and frequent diarrhea that need to be addressed by a GI physician. He will be given a referral. Also discharged with antiemetics and a 6 week course of Pepcid. Given return precautions. -DDX includes but is not limited to: Gastroenteritis, irritable bowel syndrome, food poison, Vital Signs Vital Signs: Vital Signs Temperature 98.2 F 07/26/25 21:16 Pulse Rate 78 07/26/25 21:16 Respiratory Rate 16 07/26/25 21:16 Blood Pressure 135/86 07/26/25 21:16 Pulse Oximetry 100 07/26/25 21:16 Oxygen Delivery Room Air 07/26/25 21:16 Temperature 98.2 F 07/26/25 21:16 Pulse Rate 79 07/27/25 01:49 Respiratory Rate 18 07/27/25 01:49 Blood Pressure 137/82 07/27/25 01:49 Pulse Oximetry 99 07/27/25 01:49 Oxygen Delivery Room Air 07/27/25 00:46 Lab Data 07/26/25 21:46 07/26/25 21:46 Labs: Lab Results 07/26/25 07/27/25 Range/Units 21:46 01:15 WBC 14.9 H (4.5-10.0) K/mm3 RBC 5.17 (4.6-6.20) M/mm3 Hgb 16.4 (14.0-18.0) g/dL Hct 46.7 (42.0-52.0) % MCV 90.3 (80-100) fl MCH 31.7 (26-34) pg MCHC 35.1 (32-36) g/dl RDW 11.5 (11.5-14.5) % Plt Count 314 (150-375) k/mm3 MPV 9.3 (7.4-10.4) fl Immature Gran % (Auto) 0.5 (0-0.5) % Neut % (Auto) 76.6 H (45.5-73.1) % Lymph % (Auto) 16.3 L (18.3-44.2) % Barton % (Auto) 5.8 (2.6-8.5) % Eos % (Auto) 0.6 (0-4.4) % Baso % (Auto) 0.2 (0.2-1.2) % Lymph # (Auto) 2.43 (0.9-3.2) K/mm3 Barton # (Auto) 0.9 H (0.1-0.6) K/mm3 Eos # (Auto) 0.1 (0-0.3) K/mm3 Baso # (Auto) 0.0 (0.0-0.1) K/mm3 Abs Immat Gran (auto) 0.08 H (0.00-0.031) K/mm3 Absolute Neuts (auto) 11.4 H (1.3-6.7) K/mm3 Absolute Nucleated RBC 0.000 (0.0-0.012) K/mm3 Nucleated RBC % 0.0 (0.0-0.2) % PT 13.6 (11.1-14.7) Seconds INR 1.0 APTT 31.6 (22.3-36.8) Seconds Sodium 137 (137-145) mmol/L Potassium 4.2 (3.4-5.0) mmol/L Chloride 103 (98-107) mmol/L Carbon Dioxide 25 (22-30) mmol/L Anion Gap 9 (4-12) mmol/L BUN 12 (9-20) mg/dL Creatinine 0.81 (0.7-1.3) mg/dL Estim Creat Clear Calc 125 ml/min Estimated GFR > 60 (59 - ) Glucose 95 (65-110) mg/dL Calcium 9.9 (8.4-10.2) mg/dL Total Bilirubin 0.7 (0.2-1.3) mg/dL AST 38 (17-59) U/L ALT 36 (6-50) U/L Alkaline Phosphatase 52 (38-126) U/L Troponin I < 0.012 < 0.012 (0.000-0.034) ng/mL Total Protein 9.1 H (6.3-8.2) g/dL Albumin 4.9 (3.5-5.1) g/dL Lipase 39 (23-300) U/L Discharge Plan Discharge Clinical Impression: Nausea & vomiting, Diarrhea Patient Disposition: Home Condition: Stable Instructions: Antibiotic Form, Acute Nausea and Vomiting (DC), Acute Diarrhea (ED) Additional Instructions: You were seen in the emergency department for nausea vomiting and diarrhea. Please start taking Pepcid twice daily for your reflux. Use Zofran for nausea. Please follow-up with the GI doctor listed below for further management. If you worsening symptoms please return ED for evaluation. Patient Language: Greek Prescriptions: New famotidine [Pepcid] 20 mg tablet 20 mg PO BID 42 Days Qty: 84 0RF ondansetron 4 mg tablet,disintegrating 4 mg PO Q8H PRN (Reason: nausea and vomiting) Qty: 30 0RF No Action hydrocodone-acetaminophen 5-325 mg tablet 1 tablet PO Q4H PRN (Reason: pain) Qty: 12 0RF tamsulosin [Flomax] 0.4 mg capsule 0.4 mg PO DAILY Qty: 5 0RF ibuprofen [IBU] 600 mg tablet 600 mg PO Q6H PRN (Reason: pain) Qty: 20 0RF ondansetron 4 mg tablet,disintegrating 4 mg PO Q6H PRN (Reason: nausea and vomiting) Qty: 10 0RF Xofluza 80 mg tablet 80 mg PO ONCE Qty: 1 0RF Rx Instructions: as a single dose pseudoephedrine HCl 60 mg tablet 60 mg PO Q4-6H PRN (Reason: nasal congestion) Qty: 20 0RF Rx Instructions: DNExceed 4 doses/24h pantoprazole [Protonix] 40 mg tablet,delayed release (DR/EC) 40 mg PO QAM 30 Days Qty: 30 0RF Follow-up/Referrals: Micah Hahn MD [Physician, Gastroenterology] - 1 Week Referral Note: Chronic diarrhea, Gerd UNKNOWN,DOCTOR [Primary Care Provider]
[2025-07-27 03:21] VITALS: BP 114/76; PULSE 73; RESP 18; O2SAT 98
== END 2025-07-27 03:26 | disposition home or self-care (01) ==
PROVIDERS: Emergency Provider Emergency Medicine
DX: R11.2 Nausea with vomiting, unspecified (principal); R19.7 Diarrhea, unspecified; Z87.442 Personal history of urinary calculi; I45.10 Unspecified right bundle-branch block
CPT/HCPCS: 36415; 71046; 80053; 83690; 84484; 85025; 85610; 85730; 93005; 96374; 96375; 99284; A9270; J2405